=== PATIENT | female | born 1990 | race Two or more races ===

== ENCOUNTER 2022-07-07 11:40 | Emergency (ER) | payer MEDICAID ==
[~2022-07-07] VITALS: Ht 160 cm; Wt 73.0 kg
[2022-07-07 12:00] VITALS: BP 114/80
[2022-07-07] MEDS ORDERED: cephalexin 500mg capsule PO ONE (14:30)
[2022-07-07] MEDS ORDERED: sulfamethoxazole/trimethoprim DS (800/160mg) tablet PO ONE (14:30)
[2022-07-07 15:18] LABS: BASOPHILS % (AUTO) 0.4 % (0-1); EOSINOPHILS # (AUTO) 0.2 X10'3 (0-0.9); EOSINOPHILS % (AUTO) 3.2 % (0-6); HEMATOCRIT 39.1 % (35.0-45.0); HEMOGLOBIN 13.9 g/dl (12.0-16.0); LYMPHOCYTES # (AUTO) 2.4 X10'3 (1.1-4.8); LYMPHOCYTES % (AUTO) 30.7 % (21-51); MEAN CORPUSCULAR HEMOGLOBIN 32.1 PG (27.0-31.0); MEAN CORPUSCULAR HGB CONC 35.5 g/dL (33.0-36.5); MEAN CORPUSCULAR VOLUME 90.4 FL (78-98); MEAN PLATELET VOLUME 8.2 FL (7.4-10.4); MONOCYTES # (AUTO) 0.7 X10'3 (0-0.9); MONOCYTES % (AUTO) 9.6 % (2-12); NEUTROPHILS # (AUTO) 4.3 X10'3 (1.8-7.7); NEUTROPHILS % (AUTO) 56.1 % (42-75); PLATELET COUNT 286 X10'3 (140-440); RED BLOOD COUNT 4.32 X10'6 (4.20-5.60); WHITE BLOOD COUNT 7.7 X10'3 (4.5-11.0)
[2022-07-07 15:20] LABS: ALANINE AMINOTRANSFERASE 22 U/L (12-78); ALBUMIN 4.3 G/DL (3.4-5.0); ALBUMIN/GLOBULIN RATIO 1.3 (1.1-1.5); ALKALINE PHOSPHATASE 64 IU/L (46-116); ANION GAP 7 (8-16); ASPARTATE AMINO TRANSFERASE 13 U/L (10-37); BILIRUBIN,TOTAL 0.8 MG/DL (0.1-1.0); BLOOD UREA NITROGEN 8 MG/DL (7-18); BUN/CREATININE RATIO 13.1 (6.6-38.0); CALCIUM 9.2 MG/DL (8.5-10.1); CHLORIDE 104 MMOL/L (99-107); CREATININE 0.61 MG/DL (0.40-0.90); GLUCOSE 88 MG/DL (70-104); SODIUM 139 MMOL/L (135-145); TOTAL CARBON DIOXIDE 28.1 MMOL/L (24-32); TOTAL PROTEIN 7.6 G/DL (6.4-8.2); eGFR > 90 ML/MIN
[2022-07-07] MEDS ORDERED: CEPH500C81 PO (15:27)
[2022-07-07] MEDS ORDERED: SULF1TAB49 PO (15:27)
== END 2022-07-07 15:42 | disposition home or self-care (01) ==
LOC: ER 11:41
DX: L03.116 Cellulitis of left lower limb (principal)
CPT/HCPCS: 36415; 73610; 80053; 85025; 99284

== ENCOUNTER 2024-08-14 19:56 | Emergency (ER) | payer MEDICAID, OTHER ==
[~2024-08-14] VITALS: Ht 162.6 cm; Wt 68.2 kg
[2024-08-14] MEDS: ibuprofen tablet 400 MG TABLET PO ONE (22:02)
[2024-08-14] MEDS ORDERED: IBUP-1984 PO (22:03)
[2024-08-14] MEDS: LIDOcaine 5% patch TP SCH (22:03)
[2024-08-14] MEDS ORDERED: BACL10TA2 PO (22:03)
[2024-08-14] MEDS ORDERED: LIDO700A32 TD (22:03)
[2024-08-14 22:44] VITALS: BP 138/85; PULSE 71; RESP 16; TEMP 98.3; O2SAT 99
[2024-08-15] MEDS ORDERED: LIDOcaine 5% patch TP SCH (08:00)
== END 2024-08-14 22:46 | disposition home or self-care (01) ==
LOC: ER 19:56
DX: M54.2 Cervicalgia (principal); M54.50 Low back pain, unspecified; R07.9 Chest pain, unspecified; Z79.1 Long term (current) use of non-steroidal anti-inflammatories (NSAID); Z79.899 Other long term (current) drug therapy; V89.2XXA Person injured in unspecified motor-vehicle accident, traffic, initial encounter; Y93.89 Activity, other specified; Y92.410 Unspecified street and highway as the place of occurrence of the external cause; Y99.8 Other external cause status
CPT/HCPCS: 99283; L0172